=== PATIENT | male | born 1980 | race Caucasian/White ===

== ENCOUNTER → 2017-04-03 | Outpatient (CLI) | payer OTHER | END | disposition disaster alternative care site (69) | LOC: GRAD 03-31 09:00 | DX: H90.8 Mixed conductive and sensorineural hearing loss, unspecified (principal); H69.80 Other specified disorders of Eustachian tube, unspecified ear; H72.90 Unspecified perforation of tympanic membrane, unspecified ear; H70.91 Unspecified mastoiditis, right ear ==